=== PATIENT | female | born 1945 | race Caucasian/White ===

== ENCOUNTER → 2017-06-04 | Outpatient (CLI) | payer MEDICARE ==
[~2017-06-04] MED LIST: AMLODIPINE BESY10 MG PO; ASPIRIN81 M1 PO; CENTRUM SILVER1 EACH PO; D3 DOTS2000 UNIT PO; KRILL OIL 3001 EACH PO; LISINOPRIL40 MG PO; MASON NATURAL600 MG PO; METFORMIN1000 MG PO; OSTEO BI-FLEX1 EAC1 PO; ZETIA10 MG PO
== END | disposition home or self-care (01) ==
LOC: MAMMO 10:34
DX: Z12.31 Encounter for screening mammogram for malignant neoplasm of breast (principal)